=== PATIENT | male | born 1945 | race Caucasian/White ===

== ENCOUNTER → 2016-12-24 | Outpatient (CLI) | payer OTHER ==
[~2016-12-24] MED LIST: ASPIR-TRIN325 MG PO; ASPIRIN EC325 M1 PO; ASPIRIN EC81 M1 PO; ASPIRIN325; FISH OIL 1,0001 EAC5 PO; HYDROCODON-ACE1 EAC7 PO; LIPITOR40 MG PO; NABUMETONE 500500 M1 PO; NEURONTIN 300300 M1 PO; QUINU10 PD PO; TOPROL XL50 MG PO; [UNRECOGNIZED DRUG - CODE] PO
--- NOTE | ~2016-12-24 | EKG ---
[address] [address] ELECTROCARDIOGRAM REPORT Name: ADELITA SU Room #: REG [facility]#: [id number] Admission: 12/24/16 Attend Phys: William Mcgregor DPM Discharge: Date of : 43 Report #: [id number] THIS REPORT FOR: //name// [facility] Test Date: 2016-12-24 Test Time: 10:48:26 Pat Name: ADELITA SU Department: Room: Gender: M Hydrator: Suzie DYSON : 1945 Requested By: William Mcgregor Order Number: [id number] MD: Joni Liao Measurements Intervals [place] Rate: 59 P: 27 WI: 197 QRS: 17 QRSD: 114 T: 70 QT: 403 QTc: 400 Interpretive Statements Sinus rhythm Incomplete right bundle branch block Inferior infarct, old Minimal ST elevation, anterior leads Compared to ECG 03/17/2013 09:33:47 ST (T wave) deviation now present Myocardial infarct finding still present Electronically Signed On 12-24-2016 14:40:38 CDT by Joni Liao [email or web address] <ELECTRONICALLY SIGNED> By: Joni Liao MD 12/24/16 1440 1048 1048 Joni Liao MD /EPI
[2016-12-24 09:51] LABS: HEMATOCRIT 42.3 % (42.0-52.0); HEMOGLOBIN 14.7 gm/dL (14.0-18.0); MCH 31.3 pg (26.0-34.0); MCHC 34.7 g/dL (28.0-37.0); MCV 90.2 fL (80.0-100.0); RBC 4.69 mil/uL (4.50-6.00); RDW 13.4 % (10.5-14.5); WBC 4.9 thou/uL (4.0-11.0)
[2016-12-24 09:58] LABS: CREATININE 1.1 mg/dL (0.7-1.3); POTASSIUM 4.9 mmol/L (3.5-5.1)
== END ==
LOC: RAD 09:20
PROVIDERS: Podiatrist Foot & Ankle Surgery
DX: Z01.818 Encounter for other preprocedural examination (principal)

== ENCOUNTER → 2017-10-25 | Outpatient (CLI) | payer OTHER | LOC: RAD 14:45 | DX: M51.36 Other intervertebral disc degeneration, lumbar region (principal); I70.8 Atherosclerosis of other arteries; I70.0 Atherosclerosis of aorta; M25.562 Pain in left knee; M17.12 Unilateral primary osteoarthritis, left knee; M77.8 Other enthesopathies, not elsewhere classified; I25.10 Atherosclerotic heart disease of native coronary artery without angina pectoris ==

== ENCOUNTER → 2018-05-06 | Outpatient (CLI) | payer OTHER ==
[~2018-05-06] VITALS: Ht 177.8 cm; Wt 87.1 kg
[~2018-05-06] MED LIST changes: +ASPIR 8181 MG PO; +LIPITOR 20 MG T20 M1 PO; +NITROGLYCERIN0.4 MG SUBLING; +PLAVIX 75 MG TA75 M1 PO; +SUDAFED PE10 M2 PO; +VITAMINC500 PO
--- NOTE | ~2018-05-06 | PATH ---
[facility] [place] [address] PATHOLOGY RPT PROCEDURE Name: ADELITA SU Room #: REG Corrine Avila.#: [id number] Admission: 05/06/18 Date of : 43 Discharge: Report #: [id number] Path Case #: [id number] [facility] Accession Number: [id number] . 01 Material submitted: . PART A: POLYP AT CECUM PART B: POLYP AT DESCENDING COLON PART C: POLYPS AT RECTUM . 01 Clinical history: . Pre-OP DX: Hx polyps Post-OP DX: Colon polyps . 02 Diagnosis: A. Colonic mucosa "polyp cecum biopsy": - Polypoid colonic mucosa consistent with early hyperplastic polyp. - There is no evidence of adenomatous change, high-grade dysplasia or malignancy. . B. Colonic mucosa "polyp at descending colon biopsy": - Tubular adenoma. - There is no evidence of high-grade dysplasia or malignancy. . C. Colonic mucosa "polyps at rectum": - Hyperplastic polyp. - There is no evidence of adenomatous change, high-grade dysplasia or malignancy. (SHA:edmund 05/09/2018) QTP/05/09/2018 . 02 Electronically signed: . Norberto Nichols MD, Pathologist NPI- [id number] . 01 Gross description: . A. Received in formalin labeled "Adelita Su, polyp at cecum," is a single segment of villasenor soft tissue measuring 0.6 cm in maximum dimension. The specimen is entirely submitted in cassette A1. . B. Received in formalin labeled "Adelita Su, polyp descending colon," is a single segment of villasenor soft tissue measuring 0.6 cm in maximum dimension. The specimen is submitted entirely in cassette B1. . C. Received in formalin labeled "Adelita Su, polyps at rectum," are 2 segments of villasenor soft tissue measuring 0.5 x 0.2 x 0.1 cm in aggregate dimensions and ranging from 0.2 to 0.3 cm in maximum dimension. The specimen is submitted entirely in cassette C1. [address] [address] PATHOLOGY RPT PROCEDURE Name: ADELITA SU [facility] [id number] Admission: 05/06/18 Date of : 43 Discharge: Report #: [id number] Path Case #: [id number] (TSD; 05/06/2018) TOB/TOB . 02 Pathologist provided ICD-10: D12.4, K63.5, K62.1 . 02 CPT . 841798, 662944, 201595 Specimen Comment: A courtesy copy of this report has been sent to Specimen Comment: [phone], . Specimen Comment: Report sent to / DR MARTINEZ Performed at: [address], [place], [place] [id number] MD Yasir Starks MD Phone: [phone] Performed at: [address] [id number] MD Cassie Tillman MD Phone: [phone]
--- NOTE | ~2018-05-06 | P ---
[facility] [place] [address] PROCEDURE REPORT Name: ADELITA SU [facility] #: [facility] [id number] Admission: 05/06/18 Attend Phys: Kenneth Phillips Discharge: Date of : 43 Report #: [id number] THIS REPORT FOR: //name// CC: Kenneth Tamez MD [facility] Luke Mcmahon MD DATE OF SERVICE: 05/06/2018 PROCEDURE PERFORMED: Colonoscopy with biopsies. HISTORY OF PRESENT ILLNESS: The patient is a 72-year-old male with a history of colon polyps 5 years ago, here for repeat routine colonoscopy. He denies any symptoms other than mild constipation. No family history of colon cancer. DESCRIPTION OF PROCEDURE: The risks and benefits of the procedure were explained to the patient and those risks including but not limited to bleeding, perforation and the risk of sedation. He understood these risks and gave informed consent. Sedation was given using propofol per anesthesia. Next, a digital rectal exam was initially performed, which was normal. Next, using a standard Olympus colonoscope, the scope was placed in the patient's anus and advanced under direct vision to the cecum. The overall prep was good. In the cecum, there was a 3 mm sessile polyp. This was removed with cold forceps, otherwise normal. The ileocecal valve was normal. The ascending and transverse colon were normal. In the descending colon, a 4 mm sessile polyp was noted, also removed with cold forceps. Multiple diverticula were noted in the sigmoid colon, otherwise normal. Multiples small hyperplastic appearing polyps were noted in the rectum. Biopsies of the polyps were obtained. They were 2-3 mm in size. On retroflexion, no abnormalities were noted. The scope was then withdrawn and the procedure terminated. The patient tolerated the procedure well. IMPRESSION: 1. Small colonic polyps as described above. 2. Sigmoid diverticulosis. 3. Otherwise, normal colonoscopy. RECOMMENDATIONS: 1. Await biopsy results. 2. If polyps are hyperplastic, consider repeat colonoscopy in 10 years and if adenomatous polyp, repeat in [address] [address] PROCEDURE REPORT Name: ADELITA SU [facility]: [id number] Admission: 05/06/18 Attend Phys: Kenneth Phillips Discharge: Date of : 43 Report #: [id number] Thank you for allowing me to participate in his care. By: [id number] Kenneth Plunkett MD /nt
== END | disposition home or self-care (01) ==
LOC: GI 06:49
DX: D12.4 Benign neoplasm of descending colon (principal); K63.5 Polyp of colon; K62.1 Rectal polyp; K57.30 Diverticulosis of large intestine without perforation or abscess without bleeding; Z86.010 Personal history of colon polyps; I10 Essential (primary) hypertension; E78.5 Hyperlipidemia, unspecified; Z95.1 Presence of aortocoronary bypass graft; Z95.5 Presence of coronary angioplasty implant and graft; Z85.828 Personal history of other malignant neoplasm of skin; Z90.49 Acquired absence of other specified parts of digestive tract; Z98.41 Cataract extraction status, right eye; Z98.42 Cataract extraction status, left eye; Z98.890 Other specified postprocedural states; Z79.899 Other long term (current) drug therapy; Z87.891 Personal history of nicotine dependence; Z88.8 Allergy status to other drugs, medicaments and biological substances; Z79.82 Long term (current) use of aspirin
CPT/HCPCS: 62110; 62900

== ENCOUNTER → 2019-02-24 | Outpatient (CLI) | payer OTHER ==
[2019-02-24 08:37] LABS: CREATININE 1.2 mg/dL (0.7-1.3)
== END ==
LOC: MRI 07:20
PROVIDERS: Neuromusculoskeletal Medicine & OMM
DX: R26.9 Unspecified abnormalities of gait and mobility (principal); G62.9 Polyneuropathy, unspecified; R42 Dizziness and giddiness; R41.82 Altered mental status, unspecified

== ENCOUNTER → 2019-03-21 | Outpatient (CLI) | payer OTHER | LOC: MRI 06:49 | DX: M47.22 Other spondylosis with radiculopathy, cervical region (principal); M50.11 Cervical disc disorder with radiculopathy, high cervical region; M25.78 Osteophyte, vertebrae; M48.02 Spinal stenosis, cervical region ==

== ENCOUNTER → 2019-04-03 | Outpatient (CLI) | payer OTHER ==
[2019-04-03 12:19] LABS: CREATININE 1.3 mg/dL (0.7-1.3)
== END ==
LOC: MRI 11:30
PROVIDERS: Psychiatry & Neurology Neuromuscular Medicine
DX: K57.30 Diverticulosis of large intestine without perforation or abscess without bleeding (principal); G62.9 Polyneuropathy, unspecified; R27.0 Ataxia, unspecified

== ENCOUNTER → 2020-01-12 | Outpatient (CLI) | payer OTHER | LOC: SJCVC 13:09 | PROVIDERS: ATTEND Internal Medicine Cardiovascular Disease | DX: I45.10 Unspecified right bundle-branch block (principal); I25.810 Atherosclerosis of coronary artery bypass graft(s) without angina pectoris; I10 Essential (primary) hypertension; E78.00 Pure hypercholesterolemia, unspecified; G63 Polyneuropathy in diseases classified elsewhere; R53.83 Other fatigue; M19.90 Unspecified osteoarthritis, unspecified site; E78.5 Hyperlipidemia, unspecified; Z95.1 Presence of aortocoronary bypass graft; Z79.899 Other long term (current) drug therapy; Z82.49 Family history of ischemic heart disease and other diseases of the circulatory system; Z87.891 Personal history of nicotine dependence ==

== ENCOUNTER → 2020-03-14 | Outpatient (CLI) | payer OTHER | LOC: SJCVCIMAG 09:32 | PROVIDERS: ATTEND Internal Medicine Cardiovascular Disease | DX: I45.10 Unspecified right bundle-branch block (principal); I25.810 Atherosclerosis of coronary artery bypass graft(s) without angina pectoris; R53.83 Other fatigue; I10 Essential (primary) hypertension; E78.5 Hyperlipidemia, unspecified; Z87.891 Personal history of nicotine dependence; Z79.82 Long term (current) use of aspirin; Z79.899 Other long term (current) drug therapy; Z95.1 Presence of aortocoronary bypass graft; Z88.8 Allergy status to other drugs, medicaments and biological substances ==

== ENCOUNTER 2020-09-12 06:22 | Observation (INO) | payer OTHER ==
[~2020-09-12] VITALS: Ht 175.3 cm; Wt 88.9 kg
[2020-09-12] VITALS (10 sets, daily range): BP systolic 109–126; BP diastolic 59–73
[2020-09-12] MEDS ORDERED: NEURONTIN 400M400 M2 PO (07:16)
[2020-09-12] MEDS ORDERED: VITAMIN D31250 MC1 PO (07:17)
[2020-09-12] MEDS ORDERED: PROTONIX40 M2 PO (07:18)
[2020-09-12] MEDS ORDERED: VITAMIN B-1100 M2 PO (07:18)
[2020-09-12] MEDS ORDERED: MELATONIN10 M3 PO (07:19)
[2020-09-12 07:31] LABS: HEMOGLOBIN 12.5 gm/dL (14.0-18.0); MCHC 32.9 g/dL (28.0-37.0); MCV 90.9 fL (80.0-100.0); RBC 4.18 mil/uL (4.50-6.00); RDW 13.6 % (10.5-14.5); WBC 6.2 thou/uL (4.0-11.0)
[2020-09-12 07:36] LABS: CALCIUM 8.7 mg/dL (8.5-10.1); CREATININE 2.1 mg/dL (0.7-1.3); POTASSIUM 4.9 mmol/L (3.5-5.1)
[2020-09-12 12:03] LABS: CALCIUM 8.4 mg/dL (8.5-10.1); CREATININE 1.7 mg/dL (0.7-1.3); POTASSIUM 5.3 mmol/L (3.5-5.1)
[2020-09-13 04:08] LABS: MCH 30.1 pg (26.0-34.0); MCHC 33.2 g/dL (28.0-37.0); MCV 90.8 fL (80.0-100.0); RBC 3.97 mil/uL (4.50-6.00); RDW 13.7 % (10.5-14.5); WBC 5.3 thou/uL (4.0-11.0)
[2020-09-13 04:18] LABS: CALCIUM 8.3 mg/dL (8.5-10.1); CREATININE 1.5 mg/dL (0.7-1.3); POTASSIUM 5.1 mmol/L (3.5-5.1); TOTAL BILIRUBIN 0.6 mg/dL (0.2-1.0); TOTAL PROTEIN 6.1 g/dL (6.4-8.2); TROPONIN-I 0.18 ng/mL (<0.06)
[2020-09-13 04:22] VITALS: BP 117/59
--- NOTE | 2020-09-13 07:14 | EKG ---
[address] [place] [employer] [place] [address] ELECTROCARDIOGRAM REPORT Name: ADELITA SU Room #: 206-[facility].R.#: [id number] Admission: 09/12/20 Attend Phys: Rudy Tamez MD, Discharge: Date of : 43 Report #: [id number] [facility] Test Date: 2020-09-13 Test Time: 07:03:51 Pat Name: ADELITA SU Department: Room: 206 P Gender: M [employer] Department: TYLOR : 1945 Requested By: Margoth Archer Order Number: [id number] MD: Raffaele Pimentel Measurements Intervals [place] Rate: 76 P: 24 NV: 188 QRS: -9 QRSD: 106 T: 30 QT: 382 QTc: 430 Interpretive Statements Sinus rhythm RSR' in V1 or V2, probably normal variant Inferior infarct, old Compared to ECG 12/24/2016 10:48:26 RSR' in V1 or V2 now present Incomplete right bundle-branch block no longer present ST (T wave) deviation no longer present Myocardial infarct finding still present Electronically Signed On 09-13-2020 7:14:06 COOK CHEF by Raffaele Pimentel [email or web address] <ELECTRONICALLY SIGNED> By: Raffaele Pimentel MD, FACC 09/13/20713 2 2 Raffaele Pimentel MD, FAC /EPI
[2020-09-13] MEDS ORDERED: EFFIENT10 MG PO (07:51)
[2020-09-13] MEDS ORDERED: ASA81BEC PO (07:57)
[2020-09-13 08:00] VITALS: BP 125/68
[2020-09-13 10:39] VITALS: BP 125/68
--- NOTE | 2020-09-14 11:07 | CATHLAB ---
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 A PINNACLE 6FR TIF Sheath #[id number] sheath was inserted into the RFA^. Coronary angiography was performed using coronary diagnostic catheters. The right coronary system was accessed and visualized with a RCB catheter. The left coronary system was accessed and visualized with a JL4 catheter. The left ventricle was accessed and visualized with a PIGTAIL catheter. Left ventriculogram was performed in 30 degree projection. Closure device was deployed with a Fr MYNXGRIP 6/7F #[id number]. The patient tolerated the procedure well and there were no complications associated with the procedure. There was no hematoma. Intraoperative Conscious Sedation Sedation start time: 13:29 Case end Time: 14:20 Fentanyl 100 mcg Versed 2 mg Fluoro Time: 10.60 minutes [facility] [address] [place] [address] INVASIVE PROCEDURE REPORT Name: LESLYEMartínADELITA DE LA ROSA Room #: 206-P [facility] [place] ..#: [id number] Admission: 09/12/20 Attend Phys: Rudy Tamez, Discharge: 09/13/20 Date of : 43 Report #: [id number] Dose: DAP 10858.80 cGycm2 1902 mGy Contrast Type and Amount: Visipaque 130 ml Hemodynamics The aortic pressure is 76/40 mmHg with a mean of 71 mmHg. The left ventricular pressure is 113/4 mmHg with a mean of mmHg. The left ventricular end diastolic pressure is 18 mmHg. PCI Technique Lesion Percutaneous coronary intervention was performed on the Mid 1/3 of the PDA GRAFT. A LAUNCHER 6FR RCB #[id number] Guide Catheter was used to engage the ostium. A Luge Wire .014 x 182CM #[id number] Interventional Guidewire was used to cross the lesion. BALLOON DILATION A Balloon catheter Sprinter OTW 3.0 x 12 #[id number] was inserted and inflated up to 12.00atm for 16seconds. STENT DEPLOYMENT A drug-eluting stent RESOLUTE YASH RX 4.5 X 12 #[id number] was inserted and inflated up to 12.00atm for 23seconds. Conclusion #1. Successful PTCA stent of a subtotaled mid SVG to PDA graft with initially slow flow placement of a 4.5 x 12 resolute Yash stent postdilated to 4.5 mm YOHANNES grade III flow into the PDA and LADY. 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 Fills via the bypass graft above. #3 the left main distally high-grade lesion giving rise to an occluded LAD and circumflex. #4 the JACOBO to LAD is intact with mild irregularities this extends to the apex relatively small caliber distal vessel. #5 an SVG to diagonal and OM system appears intact the diagonal and OM have mild disease. Brisk flow no occlusive disease. #6 normal left jugular size and systolic function lower limits of normal no wall motion abnormality EF 50 to 55%. Recommendations and plan: Continue aggressive risk factor modification. Dual antiplatelet therapy has been initiated. Patient to CCU to follow post coronary stent protocol. <ELECTRONICALLY SIGNED> By: Rudy Tamez MD, FACC 09/14/201106 06 06 Rudy Tamez MD, FACC /INF
== END 2020-09-13 11:06 | disposition home or self-care (01) ==
LOC: CATH 06:22 → 2N 15:36
PROVIDERS: Nurse Practitioner Adult Health; ADMIT Internal Medicine Cardiovascular Disease; ATTEND Internal Medicine Cardiovascular Disease
DX: I25.10 Atherosclerotic heart disease of native coronary artery without angina pectoris (principal); I10 Essential (primary) hypertension; E78.00 Pure hypercholesterolemia, unspecified; I65.29 Occlusion and stenosis of unspecified carotid artery; Z79.899 Other long term (current) drug therapy; Z95.1 Presence of aortocoronary bypass graft; Z79.82 Long term (current) use of aspirin

== ENCOUNTER → 2020-10-28 | Outpatient (CLI) | payer OTHER ==
[~2020-10-28] MED LIST changes: +ASA81BEC PO; +EFFIENT10 MG PO; +MELATONIN10 M3 PO; +NEURONTIN 400M400 M2 PO; +PROTONIX40 M2 PO; +VITAMIN B-1100 M2 PO; +VITAMIN D31250 MC1 PO
== END ==
LOC: SJCVC 10:42
PROVIDERS: ATTEND Internal Medicine Cardiovascular Disease
DX: R94.31 Abnormal electrocardiogram [ECG] [EKG] (principal); I25.10 Atherosclerotic heart disease of native coronary artery without angina pectoris; I10 Essential (primary) hypertension; E78.00 Pure hypercholesterolemia, unspecified; I65.23 Occlusion and stenosis of bilateral carotid arteries; I45.10 Unspecified right bundle-branch block; E78.5 Hyperlipidemia, unspecified; Z95.1 Presence of aortocoronary bypass graft; Z86.16 Personal history of COVID-19; Z79.899 Other long term (current) drug therapy; Z87.891 Personal history of nicotine dependence; Z72.89 Other problems related to lifestyle; Z88.1 Allergy status to other antibiotic agents; Z88.8 Allergy status to other drugs, medicaments and biological substances

== ENCOUNTER → 2021-05-05 | Outpatient (CLI) | payer OTHER | LOC: SJCVC 13:05 | PROVIDERS: ATTEND Internal Medicine Cardiovascular Disease | DX: I25.10 Atherosclerotic heart disease of native coronary artery without angina pectoris (principal); R07.89 Other chest pain; R06.00 Dyspnea, unspecified; I10 Essential (primary) hypertension; E78.00 Pure hypercholesterolemia, unspecified; I65.23 Occlusion and stenosis of bilateral carotid arteries; E78.5 Hyperlipidemia, unspecified; Z95.1 Presence of aortocoronary bypass graft; Z87.891 Personal history of nicotine dependence; Z72.89 Other problems related to lifestyle; Z79.82 Long term (current) use of aspirin; Z79.899 Other long term (current) drug therapy; Z88.1 Allergy status to other antibiotic agents; Z88.8 Allergy status to other drugs, medicaments and biological substances; Z86.16 Personal history of COVID-19; Z95.818 Presence of other cardiac implants and grafts ==

== ENCOUNTER → 2021-07-03 | Outpatient (CLI) | payer OTHER | LOC: SJCVCIMAG 07:40 | PROVIDERS: ATTEND Internal Medicine Cardiovascular Disease | DX: R07.9 Chest pain, unspecified (principal); I25.10 Atherosclerotic heart disease of native coronary artery without angina pectoris; R06.00 Dyspnea, unspecified ==